=== PATIENT | female | born 1985 | race Two or more races ===

== ENCOUNTER 2025-10-14 17:04 | Emergency (ER) | payer MEDICAID ==
[~2025-10-14] VITALS: Ht 157.5 cm; Wt 78.9 kg
[2025-10-14] MEDS ORDERED: HALOPERIDOL LACTATE INJ 5 MG/ML VIAL ONE (17:23)
[2025-10-14] MEDS ORDERED: LORAZEPAM INJ 2 MG/ML VIAL ONE (17:23)
[2025-10-14] MEDS: LORAZEPAM INJ 2 MG/ML VIAL IM ONE (17:29)
[2025-10-14] MEDS: HALOPERIDOL LACTATE INJ 5 MG/ML VIAL IM ONE (17:30)
[2025-10-14 17:57] LABS: PLATELET COUNT (AUTO) 355 K/uL (150-450); RED BLOOD CELL COUNT(AUTO) 4.20 MIL/uL (4.0-5.2); RED CELL DISTRIBUTION WIDTH 12.6 % (11.5-15.0); WHITE BLOOD COUNT (AUTO) 8.8 K/uL (4.3-11.0)
[2025-10-14 18:12] LABS: ALCOHOL, BLOOD < 3 mg/dL (0-10); ASPARTATE AMINOTRANSFERASE 24 U/L (15-37); CALCIUM, SERUM 8.6 mg/dL (8.5-10.1); CREATININE 0.8 mg/dL (0.6-1.3); SODIUM SERUM 137 mmol/L (136-145); TOTAL PROTEIN, SERUM 7.7 g/dL (6.4-8.2); UREA NITROGEN, BLOOD 12 mg/dL (7-18)
[2025-10-14 20:05] LABS: APPEARANCE,URINE CLEAR (CLEAR); BLOOD, URINE TRACE-INTA Ery/uL (NEGATIVE); LEUKOCYTE ESTERASE ,URINE NEGATIVE (NEGATIVE); NITRITE, URINE NEGATIVE (NEGATIVE); UGLUCOSE NEGATIVE (NEGATIVE)
[2025-10-14 20:23] LABS: ADD URINE CULTURE NO; PREGNANCY TEST URINE QUAL NEGATIVE (NEGATIVE); SQUAMOUS EPITHELIAL CELL,UR Few /HPF (None Seen)
[2025-10-14 20:44] LABS: AMPHETAMINE, URINE NEGATIVE (NEGATIVE); BARBITURATE, URINE NEGATIVE (NEGATIVE); BENZODIAZEPINE, URINE NEGATIVE (NEGATIVE); CANNABINOID, URINE NEGATIVE (NEGATIVE); COCCAINE, URINE NEGATIVE (NEGATIVE); OPIATE, URINE NEGATIVE (NEGATIVE)
[2025-10-15 06:36] VITALS: BP 134/89; TEMP 98; O2SAT 98
== END 2025-10-15 06:36 | disposition home or self-care (01) ==
LOC: ER 17:31
DX: R45.851 Suicidal ideations (principal); R10.20 Pelvic and perineal pain unspecified side; Z79.899 Other long term (current) drug therapy; Z20.822 Contact with and (suspected) exposure to COVID-19
CPT/HCPCS: 99285; 96372; 85025; 80048; 80076; 84703; 81001; 36415; 84702; 87426; 80143; 80320; 80307; 98960; J2060; J1200; J1630; G0480

== ENCOUNTER 2025-10-16 12:39 | Emergency (ER) | payer MEDICAID ==
[~2025-10-16] VITALS: Ht 149.9 cm; Wt 90.7 kg
[2025-10-16 12:58] VITALS: TEMP 98.2
[2025-10-16] MEDS ORDERED: ACETAMINOPHEN ES 500 MG TABLET ONE (13:19)
[2025-10-16] MEDS ORDERED: IBUPROFEN 400 MG TABLET ONE (13:19)
[2025-10-16] MEDS: ACETAMINOPHEN ES 500 MG TABLET PO ONE (13:21)
[2025-10-16] MEDS: IBUPROFEN 400 MG TABLET PO ONE (13:21)
[2025-10-16] MEDS ORDERED: LORAZEPAM 0.5 MG TABLET ONE (13:30)
[2025-10-16] MEDS: LORAZEPAM 0.5 MG TABLET PO ONE (13:32)
[2025-10-16 18:38] VITALS: BP 120/78; O2SAT 99
== END 2025-10-16 18:37 | disposition home or self-care (01) ==
LOC: ER 14:14
DX: S80.12XA Contusion of left lower leg, initial encounter (principal); S80.11XA Contusion of right lower leg, initial encounter; Y08.89XA Assault by other specified means, initial encounter; Y93.89 Activity, other specified; Y92.89 Other specified places as the place of occurrence of the external cause; Y99.9 Unspecified external cause status
CPT/HCPCS: 71045-TC; 73080-TC; 73590-TC